=== PATIENT | male | born 1975 | race African-American/Black ===

== ENCOUNTER 2019-10-05 21:13 | Outpatient (REF) | payer OTHER, SELFPAY ==
[2019-10-05 21:33] LABS: Hemoglobin A1C 6.2 % (3.8-5.6)
[2019-10-05 21:53] LABS: ALT 66 U/L (16-63); AST 44 U/L (15-37); Albumin 4.4 g/dL (3.4-5.0); Alkaline Phosphatase 90 U/L (46-116); BUN 18 mg/dL (7-18); Bilirubin, Total 0.5 mg/dL (0.2-1.0); CREATININE 0.97 mg/dL (0.70-1.30); Calcium 9.2 mg/dL (8.5-10.1); Chloride 105 mmol/L (98-107); Glucose 173 mg/dL (74-106); Potassium 4.1 mmol/L (3.5-5.1); Sodium 141 mmol/L (136-145); Total Protein 6.9 g/dL (6.4-8.2)
== END 2019-10-05 21:33 ==
LOC: NCHCN 21:13
PROVIDERS: PCP Family Medicine; Visit Provider Family Medicine
DX: E66.9 Obesity, unspecified (principal); R74.0 Nonspecific elevation of levels of transaminase and lactic acid dehydrogenase [LDH]; E55.9 Vitamin D deficiency, unspecified
CPT/HCPCS: 80053; 82306; 83036

== ENCOUNTER 2019-12-31 16:42 | Outpatient (REF) | payer OTHER, SELFPAY ==
[2019-12-31 21:33] LABS: Hemoglobin A1C 5.9 % (<5.7)
[2019-12-31 21:45] LABS: ALT 63 U/L (16-63); AST 39 U/L (15-37); Albumin 4.7 g/dL (3.4-5.0); Alkaline Phosphatase 83 U/L (46-116); Bilirubin, Total 0.7 mg/dL (0.2-1.0); Total Protein 7.2 g/dL (6.4-8.2)
[2019-12-31 22:18] LABS: Bilirubin, Direct 0.18 mg/dL (0.00-0.20)
== END 2019-12-31 17:02 ==
LOC: NCHCN 16:42
PROVIDERS: PCP Family Medicine; Visit Provider Family Medicine
DX: R73.09 Other abnormal glucose (principal); E66.9 Obesity, unspecified; K76.0 Fatty (change of) liver, not elsewhere classified; R74.01 Elevation of levels of liver transaminase levels
CPT/HCPCS: 80076; 83036

== ENCOUNTER 2020-04-28 15:41 | Outpatient (REF) | payer OTHER, SELFPAY ==
[2020-04-28 21:34] LABS: Hemoglobin A1C 6.2 % (<5.7)
[2020-04-28 21:55] LABS: ALT 37 U/L (16-63); AST 15 U/L (15-37); Albumin 4.6 g/dL (3.4-5.0); Alkaline Phosphatase 85 U/L (46-116); Anion Gap 9.2 mmol/L (3-11); BUN 18 mg/dL (7-18); Bilirubin, Total 0.6 mg/dL (0.2-1.0); CO2 28.8 mmol/L (21.0-32.0); Calcium 9.7 mg/dL (8.5-10.1); Calculated LDL 68 mg/dL (<100); Chloride 103 mmol/L (98-107); Cholesterol 160 mg/dL (<200); Glucose 116 mg/dL (74-106); HDL Cholesterol 59 mg/dL (40-60); Sodium 141 mmol/L (136-145); Total Protein 7.5 g/dL (6.4-8.2); Triglyceride 166 mg/dL (<150)
[2020-05-01 06:27] LABS: Vitamin D 25 Total 32.1 ng/ml (30-100)
== END 2020-04-28 15:42 | disposition home or self-care (01) ==
LOC: NCHCN 15:41
PROVIDERS: PCP Family Medicine; Visit Provider Family Medicine
DX: R73.03 Prediabetes (principal); E55.9 Vitamin D deficiency, unspecified; R74.01 Elevation of levels of liver transaminase levels; K76.0 Fatty (change of) liver, not elsewhere classified; E66.9 Obesity, unspecified
CPT/HCPCS: 80053; 80061; 82306; 83036

== ENCOUNTER 2020-09-14 13:24 | Outpatient (REF) | payer MEDICAID, SELFPAY ==
[2020-09-14 14:11] LABS: Hemoglobin A1C 5.8 % (<5.7)
[2020-09-14 14:31] LABS: ALT 39 U/L (16-63); AST 24 U/L (15-37); Albumin 4.8 g/dL (3.4-5.0); Alkaline Phosphatase 85 U/L (46-116); Anion Gap 10.4 mmol/L (3-11); BUN 17 mg/dL (7-18); Bilirubin, Total 0.7 mg/dL (0.2-1.0); CO2 29.6 mmol/L (21.0-32.0); Calcium 9.9 mg/dL (8.5-10.1); Chloride 105 mmol/L (98-107); Glucose 128 mg/dL (74-106); Potassium 4.5 mmol/L (3.5-5.1); Sodium 145 mmol/L (136-145); Total Protein 7.5 g/dL (6.4-8.2)
[2020-09-14 14:41] LABS: Vitamin D 25 Total 53.1 ng/mL (30-100)
== END 2020-09-14 13:25 | disposition home or self-care (01) ==
LOC: NCHCN 13:24
PROVIDERS: PCP Family Medicine; Visit Provider Family Medicine
DX: R73.03 Prediabetes (principal); E55.9 Vitamin D deficiency, unspecified; E66.9 Obesity, unspecified
CPT/HCPCS: 80053; 82306; 83036

== ENCOUNTER 2021-02-08 07:43 | Outpatient (REF) | payer MEDICAID, SELFPAY ==
[2021-02-08 14:17] LABS: Glucose 122 mg/dL (74-106)
[2021-02-08 14:22] LABS: Hemoglobin A1C 5.8 % (<5.7)
== END 2021-02-08 07:44 | disposition home or self-care (01) ==
LOC: NCHCN 07:43
PROVIDERS: PCP Family Medicine; Visit Provider Family Medicine
DX: R73.03 Prediabetes (principal); K76.0 Fatty (change of) liver, not elsewhere classified; E55.9 Vitamin D deficiency, unspecified; E66.9 Obesity, unspecified
CPT/HCPCS: 82947; 83036

== ENCOUNTER 2021-08-10 16:27 | Outpatient (REF) | payer OTHER, MEDICAID, SELFPAY ==
[2021-08-10 14:43] LABS: Hemoglobin A1C 5.7 % (<5.7)
[2021-08-10 14:56] LABS: ALT 38 U/L (16-63); AST 25 U/L (15-37); Albumin 4.6 g/dL (3.4-5.0); Alkaline Phosphatase 94 U/L (46-116); Anion Gap 11.1 mmol/L (3-11); BUN 20 mg/dL (7-18); Bilirubin, Total 0.7 mg/dL (0.2-1.0); CO2 25.9 mmol/L (21.0-32.0); Calcium 9.6 mg/dL (8.5-10.1); Calculated LDL 93 mg/dL (<100); Chloride 105 mmol/L (98-107); Cholesterol 160 mg/dL (<200); Glucose 126 mg/dL (74-106); HDL Cholesterol 54 mg/dL (40-60); Potassium 4.5 mmol/L (3.5-5.1); Sodium 142 mmol/L (136-145); Total Protein 7.5 g/dL (6.4-8.2); Triglyceride 68 mg/dL (<150)
== END 2021-08-10 16:28 | disposition home or self-care (01) ==
LOC: NCHCN 16:27
PROVIDERS: PCP Family Medicine; Visit Provider Family Medicine
DX: K76.0 Fatty (change of) liver, not elsewhere classified (principal); E66.9 Obesity, unspecified; Z13.220 Encounter for screening for lipoid disorders; R73.03 Prediabetes
CPT/HCPCS: 80053; 80061; 83036